=== PATIENT | male | born 1975 | race Caucasian/White ===

== ENCOUNTER 2022-11-14 14:29 | Outpatient (CLI) | payer OTHER, SELFPAY ==
--- NOTE | 2022-11-14 15:48 | WPDPFTINT ---
PFT Procedure Performed PFT Procedure Performed Plethysmography (Lung Vol) Diffusing Cap (DLCO) Flow Vol Loop Spirometry w/o Bronchodil PFT Interpretation This is a pulmonary function test with spirometry, plethysmography and diffusing capacity. The test was performed and results interpreted in accordance with the 2019 and 2005 ATS/ERS Task Force guidelines respectively using the Global Lung Function Initiative-2012 reference equations. Patient demonstrated good effort and cooperation. Reproducibility criteria were met. The quality of the spirometry maneuver was Grade A. Findings: Spirometry: There is decreased maximal expiratory airflow at all lung volumes with concave expiratory flow tracing. The contour the inspiratory flow tracing is normal. The FVC is 4.89 L, 100% predicted. The FEV1 is 3.00 L, 77% predicted. The FEV1: FVC ratio 61%. Plethysmography: The total lung capacity 7.33 L, 109% predicted. The functional residual capacity is 4.29 L, 127% predicted. The residual volume is 2.02 L, 107% predicted. Diffusing capacity: The diffusing capacity unadjusted for hemoglobin and carboxyhemoglobin is 26.9, 86% predicted. The diffusing capacity adjusted for alveolar volume is 4.25, 90% predicted. Impression: There is a mild obstructive abnormality. The lung volumes are normal. The diffusing capacity is normal. There are no prior studies for comparison
== END 2022-11-14 14:30 | disposition home or self-care (01) ==
LOC: ANHPFT 14:30
PROVIDERS: PCP Nurse Practitioner Family; Visit Provider Nurse Practitioner Family
DX: R06.00 Dyspnea, unspecified (principal); R94.2 Abnormal results of pulmonary function studies
CPT/HCPCS: 94375; 94726; 94729